=== PATIENT | female | born 1980 | race Caucasian/White ===

== ENCOUNTER → 2022-03-07 | Day surgery (SDC) | payer OTHER ==
[~2022-03-07] MED LIST: ADDERALL 7.5 M7.5 MG PO; BENAFIBER PO; CLONAZEPAM1 MG PO; DEXAMETHASONE SOD PHOS 10 MG/1 ML VIAL ONE; DEXAMETHASONE SOD PHOS INJ 4 MG/ML SDV ONE; EPINEPHRINE HCL 1:1000 1ML 1 MG/ML AMP ONE; FENTANYL CITRATE/PF 100MCG/2 ML INJ ONE; FLUDROCORTISON0.1 MG PO; HYDROCORTISONE10 MG PO; HYDROMORPHONE 1MG/1ML INJ ONE; KETOROLAC TROMETHAMINE 30 MG/ML VIAL ONE; LAMOTRIGINE100 MG PO; LIDOCAINE 1% W/EPINEPHRINE 20 ML VIAL ONE; LIDOCAINE HCL 2% LOCAL INJ 5 ML SDV VIAL INJ ONE; LUNESTA3 MG PO; MELATONIN3 MG PO; MIDAZOLAM HCL 2 MG/2 ML VIAL ONE; ONDANSETRON HCL INJ 2MG/ML 2ML 2 MG/ML VIAL ONE; POVIDONE IODINE 0.05% 0.05 % ML PO ONE; PROPOFOL IV EMULSION 10 MG/ML 20 ML VIAL ONE; ROCURONIUM BROMIDE 10 MG/ML 5ML VIAL IV ONE; SEVOFLURANE INHAL SOLN 250 ML PEN BTL ONE; TYLENOL EXTRA500 MG PO
[2022-03-07 11:06] VITALS: BP 129/86
== END | disposition home or self-care (01) ==
LOC: OR 07:32 → EDSEX 08:30
PROVIDERS: ATTEND Otolaryngology Otolaryngology/Facial Plastic Surgery
DX: J32.0 Chronic maxillary sinusitis (principal); J34.2 Deviated nasal septum; E27.1 Primary adrenocortical insufficiency; G43.909 Migraine, unspecified, not intractable, without status migrainosus; Z98.84 Bariatric surgery status; N20.0 Calculus of kidney; F31.9 Bipolar disorder, unspecified; F42.9 Obsessive-compulsive disorder, unspecified; R53.1 Weakness; M54.9 Dorsalgia, unspecified; F40.01 Agoraphobia with panic disorder; F17.210 Nicotine dependence, cigarettes, uncomplicated; Z79.899 Other long term (current) drug therapy; Z86.16 Personal history of COVID-19
CPT/HCPCS: 30520; 31267; 88300; 88304; C1713; J0171; J1100; J1170; J1885; J2001; J2250; J2405; J2704; J3010